=== PATIENT | male | born 1980 | race Caucasian/White ===

== ENCOUNTER 2017-12-15 15:20 | Emergency (ER) | payer SELFPAY ==
[~2017-12-15] VITALS: Ht 182.9 cm; Wt 90.7 kg
--- NOTE | 2017-12-15 15:47 | PHYS DOC ---
Past History Past Medical History: Seizure Past Surgical History: Other (craniotomy) Smoking: Cigarettes Alcohol Use: Rarely Drug Use: None Adult General Chief Complaint Chief Complaint: WEAKNESS/GENERALIZED HPI HPI 37-year-old male presents with sudden onset of global weakness and tingling. This occurred suddenly at work about 2 hours ago. The patient felt like his face was swelling and that he was very weak and might fall over. He did not pass out or fall. He called his girlfriend to take him home, but when she picked him up he felt like his right arm might be going on. He was concerned for stroke like symptoms so they came to the ED. The patient feels fatigued at this time but is able to move all his extremities and answer my questions. The patient states he has been eating and drinking normally. He was drinking water work is not believe he is dehydrated. He's never had syncope or orthostatic hypotension the past. He had one episode similar to this many years ago as a teenager after extreme emotional upset. He denies any emotional upset today. Patient denies drug or alcohol use. He is a cigarette smoker. He does not believe anyone gave him any unknown substances or drink at work. Patient denies chest pain, shortness of breath, nausea, vomiting, constipation, diarrhea. Review of Systems Review of Systems Constitutional: Denies fever or chills [] Eyes: Denies change in visual acuity, redness, or eye pain [] HENT: Denies nasal congestion or sore throat [] Respiratory: Denies cough or shortness of breath [] Cardiovascular: No additional information not addressed in HPI [] GI: Denies abdominal pain, nausea, vomiting, bloody stools or diarrhea [] : Denies dysuria or hematuria [] Musculoskeletal: Denies back pain or joint pain [] Integument: Denies rash or skin lesions [] Neurologic: Global weakness, fatigue [] Endocrine: Denies polyuria or polydipsia [] All other systems were reviewed and found to be within normal limits, except as documented in this note. Physical Exam Physical Exam Constitutional: Well developed, well nourished, no acute distress, non-toxic appearance. [] HENT: Normocephalic, atraumatic, bilateral external ears normal, oropharynx moist, no oral exudates, nose normal. [] Eyes: PERRLA, EOMI, conjunctiva normal, no discharge. [] Neck: Normal range of motion, no tenderness, supple, no stridor. [] Cardiovascular:Heart rate regular rhythm, no murmur [] Lungs & Thorax: Bilateral breath sounds clear to auscultation [] Abdomen: Bowel sounds normal, soft, no tenderness, no masses, no pulsatile masses. [] Skin: Warm, dry, no erythema, no rash. [] Back: No tenderness, no CVA tenderness. [] Extremities: No tenderness, no cyanosis, no clubbing, ROM intact, no edema. [] Neurologic: Alert and oriented X 3, normal motor function, normal sensory function, no focal deficits noted. Drug evaluation was negative. The patient is moving all of his extremities without difficulty. He is answering questions appropriately. [] Psychologic: Affect normal, judgement normal, mood normal. [] EKG EKG Normal sinus rhythm, rate 79, normal axis, no ST elevations or depressions.[] Radiology/Procedures Radiology/Procedures EXAM: Head CT without contrast. HISTORY: Weakness. TECHNIQUE: Computed tomographic images of the head were obtained without contrast. *One or more of the following individualized dose reduction techniques were utilized for this examination: 1. Automated exposure control. 2. Adjustment of the mA and/or kV according to patient size. 3. Use of iterative reconstruction technique. COMPARISON: None. FINDINGS: There is no acute or subacute extra-axial or intraparenchymal hemorrhage. There is no mass effect or midline shift. There is no hydrocephalus. The bishop-white matter differentiation pattern is intact. There is hypodensity due to encephalomalacia within the inferior right frontal lobe. There are overlying craniotomy changes. There is posttraumatic or postoperative deformity of the right frontal sinus. The mastoid air cells are clear. The visualized portions of the orbits are unremarkable. IMPRESSION: 1. No acute intracranial finding. 2. Encephalomalacia within the inferior right frontal lobe with overlying craniotomy changes.[] Course & Med Decision Making Course & Med Decision Making Pertinent Labs and Imaging studies reviewed. (See chart for details) The patient's workup is reassuring. During his stay in the ED, he began to feel much better. He stated that his strength returned and he is feeling mostly normal. His cast the possible causes of his symptoms including emotional upset, physical fatigue from working a lot, or the possibility of seizure like activity. The patient will follow up with his PCP and return to a neurologist for further workup. The patient is stable for discharge at this time. [] Dragon Disclaimer Dragon Disclaimer This electronic medical record was generated, in whole or in part, using a voice recognition dictation system. Departure Departure: Referrals: PCP,PIERRE (PCP) ROSALINE KUMAR DO December 15, 2017 15:47
--- NOTE | 2017-12-15 17:02 | RAD ---
EXAM: Head CT without contrast. HISTORY: Weakness. TECHNIQUE: Computed tomographic images of the head were obtained without contrast. *One or more of the following individualized dose reduction techniques were utilized for this examination: 1. Automated exposure control. 2. Adjustment of the mA and/or kV according to patient size. 3. Use of iterative reconstruction technique. COMPARISON: None. FINDINGS: There is no acute or subacute extra-axial or intraparenchymal hemorrhage. There is no mass effect or midline shift. There is no hydrocephalus. The bishop-white matter differentiation pattern is intact. There is hypodensity due to encephalomalacia within the inferior right frontal lobe. There are overlying craniotomy changes. There is posttraumatic or postoperative deformity of the right frontal sinus. The mastoid air cells are clear. The visualized portions of the orbits are unremarkable. IMPRESSION: 1. No acute intracranial finding. 2. Encephalomalacia within the inferior right frontal lobe with overlying craniotomy changes. Electronically signed by: Judith Rivera MD (12/15/2017 4:59 PM) [facility] – [place]
[2017-12-15 17:10] VITALS: BP 136/82
[2017-12-15 17:17] LABS: BASO # 0.1 x10^3/uL (0.0-0.2); BASO % 1 % (0-3); EOS # 0.3 x10^3/uL (0.0-0.7); EOS % 3 % (0-3); HEMATOCRIT 46.2 % (39.0-53.0); HEMOGLOBIN 15.9 g/dL (13.0-17.5); LYMPH # 2.9 x10^3/uL (1.0-4.8); LYMPH % 27 % (24-48); MEAN CORPUSCULAR HEMOGLOBIN 29 pg (25-35); MEAN CORPUSCULAR HGB CONC 35 g/dL (31-37); MEAN CORPUSCULAR VOLUME 85 fL (79-100); MONO # 0.7 x10^3/uL (0.0-1.1); MONO % 6 % (0-9); NEUT # 6.5 x10^3uL (1.8-7.7); NEUT % 63 % (31-73); PLATELET COUNT 299 x10^3/uL (140-400); RED BLOOD COUNT 5.42 x10^6/uL (4.30-5.70); RED CELL DISTRIBUTION WIDTH 13.3 % (11.5-14.5); WHITE BLOOD COUNT 10.4 x10^3/uL (4.0-11.0)
[2017-12-15 17:21] LABS: CALCIUM 9.3 mg/dL (8.5-10.1); CREATININE 1.2 mg/dL (0.7-1.3); GFR 68.9; POTASSIUM 3.3 mmol/L (3.5-5.1)
== END 2017-12-15 17:54 | disposition home or self-care (01) ==
LOC: ER 15:20
DX: R53.1 Weakness (principal); R20.2 Paresthesia of skin; R53.83 Other fatigue; R22.0 Localized swelling, mass and lump, head; F17.210 Nicotine dependence, cigarettes, uncomplicated
CPT/HCPCS: 36415; 70450; 80048; 82947; 85025; 99285-25

== ENCOUNTER → 2020-11-03 | Outpatient (CLI) | payer OTHER ==
--- NOTE | 2020-11-03 16:58 | RAD ---
Exam Date: 11/03/2020 4:10 PM XR CHEST 2V Indication: Reason: CHEST PAIN / Spl. Instructions: / History: FINDINGS/ IMPRESSION: Calcified granulomas are noted. The cardiac silhouette and pulmonary vasculature are within normal limits. There is no focal consolidation, pleural effusion or pneumothorax. Degenerative changes are seen in the spine. Electronically signed by: Chapin Condon MD (11/03/2020 4:55 PM) [id number]
== END ==
LOC: DXRAD 15:54
PROVIDERS: ATTEND Physician Assistant
DX: R07.89 Other chest pain (principal)
CPT/HCPCS: 71046